=== PATIENT | female | born 1945 | race Caucasian/White ===

== ENCOUNTER 2016-08-14 19:15 | Inpatient (IN) | payer MEDICARE, OTHER ==
--- NOTE | ~2016-08-14 | DS ---
Discharge Summary [facility] [address] [place]. [address] NAME: MYRA MELO : 45 STATUS : DIS IN PAT#: [id number] AGE: 71 ADM/REG DATE : 08/14/16 MR#: [id number] REPORT SERV DATE: 08/19/16 DICTATED BY: MARSHAL PABLO DATE: 08/18/16 REPORT STATUS : Draft TRANSCRIBED BY: MODL DATE: 08/18/16 ADMISSION DATE: 08/14/2016 DISCHARGE DATE: 08/18/2016 DISCHARGE DIAGNOSES: 1. Acute on chronic hypoxic respiratory failure, now O2 dependent. 2. Acute exacerbation of chronic obstructive pulmonary disease. 3. Hypertension. 4. Hyperlipidemia. 5. Type 2 diabetes mellitus. 6. Osteoarthritis. 7. Severe tobacco abuse. CONSULTANTS DURING THIS HOSPITALIZATION: Pulmonology. INVASIVE PROCEDURES DURING THIS HOSPITALIZATION: None. BRIEF HISTORY OF PRESENT ILLNESS: The patient is a 71-year-old female, presented with shortness of breath and wheezing, so she was admitted. For detailed history and physical exam, please see note dictated by Dr. Lazaro Chandra on 08/14/2016. HOSPITAL COURSE: After being admitted to the hospital, this patient was given DuoNebs and doxycycline. She initially refused to have it, however, she was started on oral prednisone. Dr. Cornejo saw the patient in followup and Pulmonology consulted on the patient. They adjusted her medications. She continues to do well. Now, she is ambulatory, tolerating a diet, and at this time, Pulmonology has signed off and recommended that she go home on home O2. This is being arranged through our Case Management Department. Her prednisone is being tapered from 40 mg and a prescription to that effect by Pulmonology has been given. The only other new medication that we have added is Daliresp, for which I have given her a prescription. She will follow up with her primary care physician and Pulmonology in the outpatient setting. DISCHARGE DISPOSITION: Home. DISCHARGE ACTIVITY: As tolerated. DISCHARGE DIET: Low-sodium diet. DISCHARGE MEDICATIONS: Prednisone 40 mg p.o. taper, Daliresp 500 mcg p.o. once daily, aspirin 81 mg once daily, Valium 2 mg twice daily for anxiety, Voltaren 50 mg twice daily for osteoarthritis, estradiol 0.5 mg p.o. every morning, Prozac 10 mg p.o. every morning, Flonase one spray each nostril once daily, gabapentin 800 mg four times daily, [place] 7.5/325 one tablet four times daily, lisinopril 20 mg once daily, Robaxin 500 mg twice daily p.r.n. for muscle spasms, Singulair 10 mg p.o. every morning, Lopressor 50 mg extended release once daily, Tudorza one puff twice daily, ProAir two puffs p.r.n. for shortness of breath, albuterol neb one neb p.r.n. for shortness of breath, Symbicort 160/4.5 two puffs twice Discharge Summary [address] [address] NAME: MYRA MELO : 45 STATUS : DIS IN PAT#: [id number] AGE: 71 ADM/REG DATE : 08/14/16 MR#: [id number] REPORT SERV DATE: 08/19/16 DICTATED BY: MARSHAL PABLO DATE: 08/18/16 REPORT STATUS : Draft TRANSCRIBED BY: NAIF DATE: 08/18/16 daily, Promethazine 25 mg p.o. daily p.r.n., metformin 500 mg p.o. once at bedtime, Crestor 20 mg once at bedtime, Diprolene cream, Protonix 40 mg once daily. DISCHARGE FOLLOWUP: With Dr. Washington of Pulmonology as scheduled and with primary care physician in one week post discharge. More than 30 minutes spent planning this patient's discharge, reconciling medications, writing prescriptions, discussing hospital care, and followup with the patient, going over all the medications, and avoiding duplication of medications plus documenting this discharge. DICTATED BY: Lei Craig/NAIF Marshal Pablo M.D. / [id number] CC: Marshal Pablo M.D.
--- NOTE | ~2016-08-14 | HP ---
History And Physical [address] [place]. [address] NAME: MYRA MELO : 45 STATUS : ADM IN [facility]#: [id number] AGE: 71 ADM/REG DATE : 08/14/16 MR#: [id number] REPORT SERV DATE: 08/15/16 DICTATED BY: JEAN-PAUL ROCHA DATE: 08/15/16 REPORT STATUS : Draft TRANSCRIBED BY: MODGennaro DATE: 08/15/16 DATE OF ADMISSION: 08/14/2016 CHIEF COMPLAINT: A 71-year-old female presenting with cough and shortness of breath. HISTORY OF PRESENTING ILLNESS: The patient's history was obtained through careful interview with the patient and , coupled with review of [facility] medical records. The patient states that for several days now, she has had increasing shortness of breath characterized by dyspnea on exertion and a prominent wheeze. She has had a mild nonproductive cough. She describes chest discomfort in the mid and upper portion of her chest, tightness, soreness quality, up to 9/10 severity. She has had nausea, but no vomiting. No fevers or chills. No lightheadedness. No change of bowel or bladder habit. No headache. No sinus drainage. REVIEW OF SYSTEMS: Otherwise, a 14-point review of systems was obtained and was negative. PAST MEDICAL HISTORY: 1. COPD. 2. Pulmonary nodules, seen by Dr. Washington. 3. Obstructive sleep apnea, on CPAP. 4. Diverticulitis. 5. C difficile colitis, 2006. 6. Anxiety. PAST SURGICAL HISTORY: 1. Partial sigmoidectomy. 2. Adhesiolysis. 3. Colovesical fistula repair. 4. Right breast lumpectomy for benign disease. 5. Hysterectomy. ALLERGIES: SULFA AND AZITHROMYCIN. SOCIAL HISTORY: Quit smoking six years ago. Occasional alcohol use. 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 FAMILY HISTORY: Father with heart disease. Mother with hepatitis C cirrhosis. CURRENT MEDICATIONS: Include diclofenac 50 mg p.o. b.i.d., estradiol, Prozac 10 mg p.o. daily, Flonase, Neurontin 800 mg p.o. four times a day, hydrocodone, Advil, lisinopril 20 mg History And Physical [address] [place]. [address] NAME: MYRA MELO : 45 STATUS : ADM IN [facility]#: [id number] AGE: 71 ADM/REG DATE : 08/14/16 MR#: [id number] REPORT SERV DATE: 08/15/16 DICTATED BY: JEAN-PAUL ROCHA DATE: 08/15/16 REPORT STATUS : Draft TRANSCRIBED BY: MODL DATE: 08/15/16 p.o. daily, metformin 500 mg p.o. daily, Tudorza inhaled twice a day, ProAir, aspirin 81 mg p.o. daily, Symbicort inhaled twice a day, Valium 2 mg p.o. b.i.d., Robaxin, metoprolol 50 mg p.o. daily, Singulair 10 mg p.o. daily, Protonix 40 mg p.o. daily, Phenergan, Crestor 20 mg p.o. daily. PHYSICAL EXAMINATION: VITAL SIGNS: Temperature 98.0, pulse 74, blood pressure 136/69, respiratory rate 20, O2 saturation 88% on room air, 93% on 2 L nasal cannula. GENERAL: An ill-appearing female, in evidence of distress secondary to shortness of breath. HEENT: Pupils equal, round, and reactive to light. No conjunctival pallor. No scleral icterus. Nares are patent. Oropharynx is clear of obstruction. Moist mucous membranes. NECK: Trachea midline. No thyromegaly. LYMPH: No cervical lymphadenopathy. No supraclavicular lymphadenopathy. RESPIRATORY: The patient has inspiratory and expiratory wheezes throughout examination with a prolonged expiratory phase and a "tight" exam. Scattered rhonchi are noted. No rales. The patient has no focal egophony. A very labored respiratory effort, heaving with her abdomen and shoulders to assist in breathing. CARDIOVASCULAR: Regular rate and rhythm. No murmurs, rubs, or gallops. No extremity edema is appreciated. ABDOMEN: Soft, nontender, nondistended. Normal bowel sounds auscultated throughout. No organomegaly. DERMATOLOGICAL: Warm and dry extremities. No pallor. No cyanosis. PSYCHIATRIC: Normal affect. Good mood. Alert and oriented x3. LABORATORY DATA: ABG demonstrates a pH of 7.35, a PaCO2 of 41, a PaO2 of 57, and a bicarbonate of 22 on room air. White blood cell count 8.5, hemoglobin 12, hematocrit 38, platelets 175. Sodium 137, potassium 4.8, chloride 104, bicarbonate 29, BUN 14, creatinine 1.04, glucose 119. Brain natriuretic peptide 61. Troponin negative. INR 1.0. STUDIES: 1. Chest x-ray by my own evaluation shows chronic COPD changes, but nothing acute. 2. EKG by my own evaluation shows sinus rhythm, no major abnormalities. ASSESSMENT AND PLAN: 1. Hypoxic respiratory failure. Provide supportive care. 2. Chronic obstructive pulmonary disease exacerbation. Place on DuoNeb nebulizers and doxycycline. The patient adamantly refuses steroids. She states that steroids make her "crazy", would like to consult Dr. Washington, the patient's operations tech. CATALINO/NAIF Jean-Paul Rocha M.D. History And Physical [address] [address] NAME: MYRA MELO : 45 STATUS : ADM IN [facility]#: [id number] AGE: 71 ADM/REG DATE : 08/14/16 MR#: [id number] REPORT SERV DATE: 08/15/16 DICTATED BY: JEAN-PAUL ROCHA DATE: 08/15/16 REPORT STATUS : Draft TRANSCRIBED BY: MODL DATE: 08/15/16 / [id number] CC: Lei Lizarraga M.D.
--- NOTE | ~2016-08-14 | CN ---
Consultation Report [facility] [address] [place]. [address] NAME: MYRA BUTLER : 45 STATUS : ADM IN PAT#: [id number] AGE: 71 ADM/REG DATE : 08/14/16 MR#: [id number] REPORT SERV DATE: 08/15/16 DICTATED BY: WALTER ORTIZ IV DATE: 08/15/16 REPORT STATUS : Draft TRANSCRIBED BY: NAIF DATE: 08/15/16 PULMONARY CONSULTATION DATE OF CONSULTATION: 08/15/2016 REASON FOR REQUEST: COPD exacerbation. HISTORY OF PRESENT ILLNESS: History was obtained from the patient and the records. Ms Butler is a 71-year-old female with a history of COPD with asthma, pulmonary nodules, obstructive sleep apnea on CPAP, hypertension, anxiety disorder, who was admitted with obstructive lung disease exacerbation. The patient has had two separate exacerbations earlier this year, not clearly associated with any clear exposure or infection. She has a chronic cough, occasionally productive of slightly discolored mucus. She noted increased chest congestion, shortness of breath, and wheezing. She was seen in the office in May, at which time, she had adjustments of her breathing medications. She has reportedly been prescribed Daliresp in the past though has never initiated the medication. She has had intolerance to steroids though reportedly tolerated outpatient prednisone therapy. Because of worsening symptoms and dyspnea on exertion, she presented to the emergency room and was admitted. She has never participated in pulmonary rehabilitation. She has a nebulizer that she is using more than every four hours at home. She denies fevers, chills, sweats, or hemoptysis. The patient has recently been diagnosed with obstructive sleep apnea of unclear severity. She has a CPAP mask and thinks that her wheezing has been worse on CPAP therapy. She does have humidification. Denies drying of her airways. PULMONARY HISTORY: Has a history of childhood asthma as well as adult obstructive lung disease. She has had pneumonia once in the past. She has a 51-whhi-eenh smoking history, having quit six years ago. 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 She is up-to-date on both the seasonal influenza vaccine and Prevnar 13, though does not appear she has received the Pneumovax. This will be due in October. PAST MEDICAL HISTORY: Remarkable for: 1. COPD with asthma. 2. Pulmonary nodules. 3. Obstructive sleep apnea, on CPAP. 4. Hypertension. 5. Anxiety disorder. SURGERIES: 1. Partial colectomy. 2. Lysis of adhesions. 3. Repair of colovesicular fistula. 4. Right breast lumpectomy for benign disease. Consultation Report [facility] [address] [place]. [address] NAME: MYRA BUTLER : 45 STATUS : ADM IN [facility]#: [id number] AGE: 71 ADM/REG DATE : 08/14/16 MR#: [id number] REPORT SERV DATE: 08/15/16 DICTATED BY: WALTER ORTIZ IV DATE: 08/15/16 REPORT STATUS : Draft TRANSCRIBED BY: NAIF DATE: 08/15/16 5. Cataract surgery. 6. Total abdominal hysterectomy. ALLERGIES: SHE IS INTOLERANT OF AZITHROMYCIN SECONDARY TO NAUSEA AND SHE DEVELOPS A RASH FROM SULFA DRUGS. CURRENT MEDICATIONS: The patient is on aspirin 81 mg daily, Dulera 2 puffs twice a day, DuoNebs every four hours, Estrace 1.5 mg daily, Flonase 1 spray each nostril daily, Glucophage 500 mg with supper, Lipitor 40 mg at bedtime, Lopressor 50 mg daily, Lovenox 40 mg subcu daily, Neurontin 800 mg four times a day, Vina 7.5 mg four times a day, Prinivil 20 mg daily, Prozac 10 mg daily, Robaxin 500 mg twice a day, Singulair 10 mg daily, Spiriva one capsule daily, Valium 2 mg twice a day, and doxycycline 100 mg twice a day. SOCIAL HISTORY: Remarkable for the tobacco use as above. The patient has rare social alcohol use. There is no illicit drug use. She is and has two children. FAMILY HISTORY: Remarkable for father with heart disease. Mother with hepatitis C and cirrhosis. There is no history of lung disease. REVIEW OF SYSTEMS: 14 systems reviewed. Pertinent positives as noted above. PHYSICAL EXAMINATION: GENERAL: This is an obese, elderly female, in no distress. She is alert, awake, and oriented. VITAL SIGNS: Temperature is 97, pulse is 88, respiratory rate is 18, saturation 94% on 2 L, and blood pressure is 146/66. HEENT: Normocephalic and atraumatic. Extraocular movements are intact. Pupils react to light. Sclerae and conjunctivae normal. She has nasal cannula in place. She has a Mallampati III to IV airway with narrowing of the posterior pharyngeal space. No other gross oral lesions noted. NECK: Without any palpable lymphadenopathy or thyromegaly. CHEST: The patient has decreased breath sounds symmetrically and a prolonged expiratory phase. There are a few basilar inspiratory crackles. There are expiratory wheezes bilaterally. No true rhonchi are noted. CARDIOVASCULAR: Jugular venous pulsations are difficult to elicit secondary to body habitus. She has 1+ carotid upstrokes. No obvious bruit. She has a distant regular S1, S2 with no clear murmur or S3. Peripheral pulses are diminished. ABDOMEN: Surgical scars are noted. Obese, soft, nontender. There are hypoactive bowel sounds. There is no palpable hepatosplenomegaly or mass. EXTREMITIES: Demonstrate no cyanosis, clubbing, edema, or palpable cords. NEUROLOGIC: Strength is 5/5 and sensation intact to light touch. LABORATORY DATA: Chest x-ray demonstrates some minimal basilar atelectasis with no focal infiltrate. Review of the previous chest CT scan in April demonstrated stable 2 mm less nodules with moderate central lobular emphysematous changes. Consultation Report [place] [id number] [facility] [place]. [address] NAME: MYRA BUTLER : 45 STATUS : ADM IN [facility]#: [id number] AGE: 71 ADM/REG DATE : 08/14/16 MR#: [id number] REPORT SERV DATE: 08/15/16 DICTATED BY: WALTER ORTIZ IV DATE: 08/15/16 REPORT STATUS : Draft TRANSCRIBED BY: NAIF DATE: 08/15/16 CBC: Hemoglobin 11.8, hematocrit 36.5, platelet count was 168,000, and white blood cell count 6.7. INR is 1.1. PTT is 29.8. Procalcitonin level is less than 0.05. Chemistry: Sodium 140, potassium 3.9, chloride 106, bicarbonate 26, BUN 14, creatinine 0.96, glucose 131. TSH is normal. Troponin is less than 0.02. Blood gas; pH 7.35, pCO2 of 41, pO2 of 57 on room air. ASSESSMENT AND PLAN: 1. Respiratory. The patient has tolerated steroids in the past though at higher doses develops dysphoria. She will be given 40 mg now and if this causes any anxiety or altered mood, it will be decreased to 20 mg. She will remain on the other bronchodilator medication. We will add Daliresp 500 mcg daily. The patient will be an excellent candidate for outpatient pulmonary rehabilitation, which will be ordered, and we will titrate oxygen to maintain saturations in the 90% to 94% range. The patient was encouraged to bring in her home CPAP to use at nighttime. 2. Infectious disease. No clear infectious process that would complete the doxycycline. The patient is up-to-date on immunizations, though should get the Pneumovax in October of this year. 3. Endocrinologic. We will watch the patient's blood sugar on the steroids and check hemoglobin A1C with her baseline hyperglycemia. Thank you for consulting us. We will follow the patient with you. AUREA/NAIF Walter Ortiz IV, M.D. / [id number] CC: Negar Cornejo M.D. UNKNOWN
[2016-08-14 19:14] LABS: BASOPHILS 0.5 %; BASOPHILS ABSOLUTE 0.04 10/3/uL (0.0-0.16); EOSINOPHILS ABSOLUTE 0.68 10/3/uL (0.0-0.53); ER CBC TAT 0 Hrs 05 Mins; HEMATOCRIT 38.5 % (36.0-48.0); HEMOGLOBIN 12.3 g/dL (12.0-16.0); IMMATURE GRANULOCYTES 0.4 %; IMMATURE GRANULOCYTES ABSOLUTE 0.03 10/3/uL (0.0-0.11); LYMPHOCYTES 12.7 %; LYMPHOCYTES ABSOLUTE 1.08 10/3/uL (0.67-4.30); MEAN CORPUS HGB CONC 31.9 g/dL (32.0-36.0); MEAN CORPUSCULAR HEMOGLOB 28.5 pg (26.0-34.0); MEAN CORPUSCULAR VOLUME 89.1 fL (80-100); MEAN PLATELET VOLUME 10.7 fL (9.2-13.0); MONOCYTES 3.8 %; MONOCYTES ABSOLUTE 0.32 10/3/uL (0.21-1.20); NEUTROPHILS 74.6 %; NEUTROPHILS ABSOLUTE 6.35 10/3/uL (2.02-8.40); RBC DISTRIBUTION WIDTH 14.3 % (12.0-16.0); RED CELL COUNT 4.32 10/6/uL (4.0-5.6); WHITE BLOOD CELLS 8.5 10/3/uL (4.5-10.5)
[2016-08-14 19:15] LABS: MANUAL DIFF NO %; PLATELET COUNT 175 10/3/uL (150-400)
[~2016-08-14 19:15] MED LIST: ASAB PO; ATV1 PO; FLOVENT110 INH; LIPITOR40 PO; LOP50 PO; LORTAB 5 PO; NEUR300 PO; PRIN10 PO; PROTONIX PO; PROTONIXIV IV; SERVENT; ZYRTEC ALLGY10 MG PO; [UNRECOGNIZED DRUG - CODE] PO; [UNRECOGNIZED DRUG - OTHER]
[2016-08-14 19:22] LABS: PARTIAL THROMBO TIME 29.6 SEC (22.5-37.2); PROTIME (NOT ORD) 13.3 SEC (12.0-14.5)
[2016-08-14 19:30] LABS: CALCIUM, SERUM 9.1 MG/DL (8.5-10.4); CHEST PAIN PROFILE TAT 0 Hrs 21 Mins; CHLORIDE, SERUM 104 MMOL/L (96-112); CO2 (CARBON DIOXIDE) 29 MMOL/L (24-34); CREATININE 1.04 MG/DL (0.55-1.02); GFR AFRICAN AMERICAN 63 ML/MIN (>=60); GFR NON AFRICAN AMERICAN 54 ML/MIN (>=60); POTASSIUM, SERUM 4.8 MMOL/L (3.5-5.3); SODIUM, SERUM 137 MMOL/L (135-148); TROPONIN I <0.02 NG/ML (<0.05)
[2016-08-14 19:33] LABS: BUN (BLOOD UREA NITROGEN) 14 MG/DL (6-23); GLUCOSE, SERUM 119 MG/DL (60-99)
[2016-08-14 19:44] LABS: ALLENS TEST Pos; BE (BASE EXCESS) -3.3 MEQ/L (0 +/- 2.5); CARBOXYHEMOGLOBIN 1.4 % (0-3); HCO3 (ACTUAL BICARBONATE) 22.1 MEQ/L (23-27); HEMOBLOGIN CONTENT 12.7 G/DL (12-16); INSTRUMENT SERIAL # 8087; METHEMOGLOBIN 0.3 % (0-3); O2 CONTENT 15.5 VOL% (18-24); OPERATOR ID 17589; PCO2 (CO2 TENSION) 41 MMHG (35-45); PO2 (O2 TENSION) 57 MMHG (79-93); SAMPLE Arterial; pH 7.35 (7.37-7.43)
[2016-08-14] MEDS ORDERED: LOP50 PO (20:29)
[2016-08-14] MEDS ORDERED: ESTRACE0.5 MG PO (20:31)
[2016-08-14] MEDS ORDERED: PRIN20 PO (20:31)
[2016-08-14] MEDS ORDERED: PROZ10 PO (20:31)
[2016-08-14] MEDS ORDERED: V2 PO (20:32)
[2016-08-14] MEDS ORDERED: ASAB PO (20:32)
[2016-08-14] MEDS ORDERED: METHOC500B PO (20:33)
[2016-08-14] MEDS ORDERED: NEUR800 PO (20:34)
[2016-08-14] MEDS ORDERED: NORCO1 TA2 PO (20:40)
[2016-08-14] MEDS ORDERED: PR25 PO (20:40)
[2016-08-14] MEDS ORDERED: TUDORZA PRESS400 MCG INH (20:41)
[2016-08-14] MEDS ORDERED: ADVIL PO (20:41)
[2016-08-14] MEDS ORDERED: SINGULAIR1 PO (20:42)
[2016-08-14] MEDS ORDERED: PROAIR HFA INH (20:42)
[2016-08-14] MEDS ORDERED: ALBUTEROL0.083 % INH (20:42)
[2016-08-14] MEDS ORDERED: GLUMETZA500 MG PO (20:43)
[2016-08-14] MEDS ORDERED: FLONASE NAS (20:43)
[2016-08-14] MEDS ORDERED: SYMBICORT 160/41 INH INH (20:43)
[2016-08-14] MEDS ORDERED: CRESTOR20 MG PO (20:44)
[2016-08-14] MEDS ORDERED: DIPROLENE CREAM15 GM TOP (20:44)
[2016-08-14] MEDS ORDERED: VOLT50 PO (20:46)
[2016-08-14] MEDS ORDERED: PROTONIX PO (20:49)
[2016-08-15 05:25] LABS: BASOPHILS 0.9 %; BASOPHILS ABSOLUTE 0.06 10/3/uL (0.0-0.16); EOSINOPHILS 9.3 %; EOSINOPHILS ABSOLUTE 0.62 10/3/uL (0.0-0.53); HEMATOCRIT 36.5 % (36.0-48.0); HEMOGLOBIN 11.8 g/dL (12.0-16.0); IMMATURE GRANULOCYTES 0.3 %; IMMATURE GRANULOCYTES ABSOLUTE 0.02 10/3/uL (0.0-0.11); LYMPHOCYTES 17.8 %; LYMPHOCYTES ABSOLUTE 1.19 10/3/uL (0.67-4.30); MEAN CORPUS HGB CONC 32.3 g/dL (32.0-36.0); MEAN CORPUSCULAR HEMOGLOB 28.9 pg (26.0-34.0); MEAN CORPUSCULAR VOLUME 89.2 fL (80-100); MEAN PLATELET VOLUME 11.5 fL (9.2-13.0); MONOCYTES 5.2 %; MONOCYTES ABSOLUTE 0.35 10/3/uL (0.21-1.20); NEUTROPHILS 66.5 %; NEUTROPHILS ABSOLUTE 4.46 10/3/uL (2.02-8.40); PLATELET COUNT 168 10/3/uL (150-400); RED CELL COUNT 4.09 10/6/uL (4.0-5.6); WHITE BLOOD CELLS 6.7 10/3/uL (4.5-10.5)
[2016-08-15 05:32] LABS: MANUAL DIFF NO %
[2016-08-15 05:45] LABS: INTERNATIONAL NORMAL RATI 1.1 UNITS (-); PARTIAL THROMBO TIME 29.8 SEC (22.5-37.2); PROTIME (NOT ORD) 13.8 SEC (12.0-14.5)
[2016-08-15 05:52] LABS: A/G RATIO 1.1 (0.7-1.9); ALBUMIN 3.3 G/DL (3.5-5.0); ALKALINE PHOSPHATASE 42 U/L (45-117); BUN (BLOOD UREA NITROGEN) 14 MG/DL (6-23); CALCIUM, SERUM 8.9 MG/DL (8.5-10.4); CHLORIDE, SERUM 106 MMOL/L (96-112); CO2 (CARBON DIOXIDE) 26 MMOL/L (24-34); CREATININE 0.96 MG/DL (0.55-1.02); GFR AFRICAN AMERICAN 69 ML/MIN (>=60); GFR NON AFRICAN AMERICAN 60 ML/MIN (>=60); GLOBULIN 2.9 G/DL (2.5-4.1); GLUCOSE, SERUM 131 MG/DL (60-99); POTASSIUM, SERUM 3.9 MMOL/L (3.5-5.3); SGOT(AST) 14 U/L (5-40); SGPT(ALT) 20 U/L (5-65); SODIUM, SERUM 140 MMOL/L (135-148); TOTAL BILIRUBIN 0.6 MG/DL (0-1.2); TOTAL PROTEIN 6.2 G/DL (6.0-8.5); TROPONIN I <0.02 NG/ML (<0.05)
[2016-08-15 06:18] LABS: PROCALCITONIN <0.05 ng/mL (<0.5)
[2016-08-15 13:56] LABS: GLYCOHEMOGLOBIN (HbA1c) 5.7 % (4.7-6.1)
[2016-08-17 06:18] LABS: ALBUMIN 3.6 G/DL (3.5-5.0); BUN (BLOOD UREA NITROGEN) 22 MG/DL (6-23); CALCIUM, SERUM 9.4 MG/DL (8.5-10.4); CHLORIDE, SERUM 103 MMOL/L (96-112); CO2 (CARBON DIOXIDE) 26 MMOL/L (24-34); CREATININE 1.08 MG/DL (0.55-1.02); GFR AFRICAN AMERICAN 60 ML/MIN (>=60); GFR NON AFRICAN AMERICAN 52 ML/MIN (>=60); GLUCOSE, SERUM 91 MG/DL (60-99); PHOSPHORUS, SERUM 3.5 MG/DL (2.5-4.5); POTASSIUM, SERUM 4.2 MMOL/L (3.5-5.3); SODIUM, SERUM 136 MMOL/L (135-148)
[2016-08-18] MEDS ORDERED: DALIRESP500 MCG PO (15:32)
[2016-08-18] MEDS ORDERED: P10 PO (15:33)
== END 2016-08-18 16:50 | disposition home or self-care (01) | DRG 189 ==
LOC: ER 19:15 → 7NO 20:18
PROVIDERS: Emergency Medicine; Hospitalist; Internal Medicine Critical Care Medicine
DX: J96.21 Acute and chronic respiratory failure with hypoxia (principal); J44.1 Chronic obstructive pulmonary disease with (acute) exacerbation; E11.9 Type 2 diabetes mellitus without complications; F41.9 Anxiety disorder, unspecified; E78.5 Hyperlipidemia, unspecified; I10 Essential (primary) hypertension; M19.90 Unspecified osteoarthritis, unspecified site; G47.33 Obstructive sleep apnea (adult) (pediatric); R91.8 Other nonspecific abnormal finding of lung field; Z87.01 Personal history of pneumonia (recurrent); Z90.49 Acquired absence of other specified parts of digestive tract; Z90.710 Acquired absence of both cervix and uterus; Z88.2 Allergy status to sulfonamides; Z79.82 Long term (current) use of aspirin; Z87.891 Personal history of nicotine dependence
CPT/HCPCS: 36600; 71010; 71020; 80048; 80053; 80069; 82805; 82962; 83036; 83735; 83880; 84145; 84443; 84484; 85025; 85610; 85730; 87449; 93005; 94640; 99285; A9270-GY; J2405